=== PATIENT | female | born 1980 | race African-American/Black ===

== ENCOUNTER 2017-07-01 16:43 | Emergency (ER) | payer MEDICAID, OTHER ==
[~2017-07-01] VITALS: Ht 170.2 cm; Wt 140.0 kg
[~2017-07-01 16:43] MED LIST: CLONAZEPAM; CLONIDINE
[2017-07-01 16:51] VITALS: BP 169/90
== END 2017-07-01 20:20 | disposition left against medical advice (07) ==
LOC: ER 16:57
DX: R10.9 Unspecified abdominal pain (principal); Z53.21 Procedure and treatment not carried out due to patient leaving prior to being seen by health care provider

== ENCOUNTER 2018-08-31 14:57 | Emergency (ER) | payer MEDICAID ==
[~2018-08-31] VITALS: Ht 170.2 cm; Wt 138.0 kg
[2018-08-31 16:28] LABS: CLARITY URINE CLEAR (CLEAR); COLOR URINE YELLOW (YELLOW); KETONES URINE NEGATIVE (NEGATIVE); LEUKOCYTE ESTERASE URINE 2+ (NEGATIVE); NITRITE URINE NEGATIVE (NEGATIVE); OCCULT BLOOD URINE NEGATIVE (NEGATIVE); PH URINE 5.5 (4.5-8.0); PROTEIN URINE NEGATIVE (NEGATIVE); SPECIFIC GRAVITY URINE 1.025 (1.005-1.030)
[2018-08-31] MEDS ORDERED: IBUPROFEN 800MG TABLET PO ONE (16:30)
[2018-08-31 17:10] VITALS: BP 165/91
[2018-09-05 04:19] LABS: CHLAMYDIA TRACHOMATIS NAA Negative (Negative); NEISSERIA GONORRHOEAE NAA Negative (Negative)
== END 2018-08-31 17:19 | disposition home or self-care (01) ==
LOC: ER 14:57
DX: N39.0 Urinary tract infection, site not specified (principal); N76.0 Acute vaginitis; I10 Essential (primary) hypertension; J45.909 Unspecified asthma, uncomplicated; Z20.2 Contact with and (suspected) exposure to infections with a predominantly sexual mode of transmission; Z79.899 Other long term (current) drug therapy; Z98.51 Tubal ligation status
CPT/HCPCS: 87210; 87491; 87591; 99283

== ENCOUNTER 2018-11-14 10:32 | Emergency (ER) | payer MEDICAID ==
[~2018-11-14] VITALS: Ht 170.2 cm; Wt 141.0 kg
[2018-11-14] MEDS ORDERED: HYDROCODONE/ACETAMINOPHEN 5/325MG TABLET PO ONE (13:00)
[2018-11-14] MEDS ORDERED: ONDANSETRON 4MG ODT PO ONE (13:00)
[2018-11-14] MEDS ORDERED: KETOROLAC 60MG/2ML VIAL IM ONE (13:00)
[2018-11-14] MEDS ORDERED: DIAZEPAM 5 MG TABLET PO ONE (13:00)
[2018-11-14 13:16] LABS: CLARITY URINE CLEAR (CLEAR); COLOR URINE YELLOW (YELLOW); KETONES URINE NEGATIVE (NEGATIVE); LEUKOCYTE ESTERASE URINE NEGATIVE (NEGATIVE); NITRITE URINE NEGATIVE (NEGATIVE); OCCULT BLOOD URINE NEGATIVE (NEGATIVE); PH URINE 6.5 (4.5-8.0); PROTEIN URINE NEGATIVE (NEGATIVE); SPECIFIC GRAVITY URINE 1.023 (1.005-1.030); UROBILINOGEN URINE 0.2 E.U./dL (0.2-1.0)
[2018-11-14] MEDS ORDERED: TRAMADOL 50MG TABLET PO ONE (14:45)
[2018-11-14 15:09] VITALS: BP 145/96
== END 2018-11-14 14:49 | disposition home or self-care (01) ==
LOC: ER 10:32
DX: M54.42 Lumbago with sciatica, left side (principal); M25.552 Pain in left hip; J45.909 Unspecified asthma, uncomplicated; I10 Essential (primary) hypertension; Z98.51 Tubal ligation status; Z98.890 Other specified postprocedural states
CPT/HCPCS: 72100; 73502; 81003; 81025; 96372; 99284; J1885; Q0162

== ENCOUNTER 2018-12-18 01:59 | Emergency (ER) | payer MEDICAID ==
[~2018-12-18] VITALS: Ht 170.2 cm; Wt 133.0 kg
[2018-12-18 05:04] LABS: CLARITY URINE TURBID (CLEAR); COLOR URINE ORANGE (YELLOW); KETONES URINE TRACE (NEGATIVE); LEUKOCYTE ESTERASE URINE 1+ (NEGATIVE); NITRITE URINE NEGATIVE (NEGATIVE); OCCULT BLOOD URINE 3+ (NEGATIVE); PROTEIN URINE 2+ (NEGATIVE); SPECIFIC GRAVITY URINE 1.042 (1.005-1.030); UROBILINOGEN URINE 0.2 E.U./dL (0.2-1.0)
[2018-12-18 06:00] VITALS: BP 129/79
== END 2018-12-18 06:09 | disposition home or self-care (01) ==
LOC: ER 02:42
DX: N76.0 Acute vaginitis (principal); N39.0 Urinary tract infection, site not specified
CPT/HCPCS: 81003; 81025; 87210; 99283

== ENCOUNTER 2019-01-08 03:11 | Emergency (ER) | payer MEDICAID ==
[~2019-01-08] VITALS: Ht 170.2 cm; Wt 128.0 kg
[2019-01-08] MEDS ORDERED: DIPHENHYDRAMINE 25MG CAPSULE PO ONE (06:30)
[2019-01-08 06:33] VITALS: BP 156/96
== END 2019-01-08 06:36 | disposition home or self-care (01) ==
LOC: ER 03:11
DX: L23.9 Allergic contact dermatitis, unspecified cause (principal)
CPT/HCPCS: 99282; Q0163

== ENCOUNTER 2019-06-24 22:25 | Emergency (ER) | payer MEDICAID ==
[~2019-06-24] VITALS: Ht 172.7 cm; Wt 140.0 kg
[2019-06-25] MEDS ORDERED: CEFTRIAXONE SODIUM 250 MG/VIAL IM ONE (04:45)
[2019-06-25] MEDS ORDERED: AZITHROMYCIN 500 MG TABLET PO ONE (04:45)
[2019-06-25] MEDS ORDERED: KETOROLAC 30MG/ML VIAL IM ONE (04:45)
[2019-06-25 05:11] LABS: BASOPHILS % 0.9 % (0.0-2.0); EOSINOPHILS % 1.4 % (0.0-5.0); HEMATOCRIT. 38.6 % (36.0-48.0); HEMOGLOBIN. 13.3 g/dL (12.0-16.0); MEAN CORPUSCULAR HEMOGLOBIN 30.3 pg (28.0-32.0); MEAN PLATELET VOLUME 8.3 fl (7.4-10.4); MONOCYTES % 8.9 % (2.0-8.0); NEUTROPHILS % 68.8 % (40.0-76.0); PLATELET 259 x1000/uL (130-400); RED BLOOD CELL COUNT 4.38 mill/uL (4.2-5.4); RED CELL DISTRIBUTION WIDTH 14.5 % (11.6-14.6)
[2019-06-25 05:28] LABS: CHLORIDE 107 mEq/L (98-107)
[2019-06-25] MEDS ORDERED: ACETAMINOPHEN WITH CODEINE 300/30MG TABLET PO ONE (06:00)
[2019-06-25 06:21] LABS: CLARITY URINE CLOUDY (CLEAR); COLOR URINE YELLOW (YELLOW); KETONES URINE NEGATIVE (NEGATIVE); LEUKOCYTE ESTERASE URINE TRACE (NEGATIVE); NITRITE URINE NEGATIVE (NEGATIVE); OCCULT BLOOD URINE NEGATIVE (NEGATIVE); PH URINE 5.5 (4.5-8.0); PROTEIN URINE NEGATIVE (NEGATIVE); SPECIFIC GRAVITY URINE 1.023 (1.005-1.030); UROBILINOGEN URINE 0.2 E.U./dL (0.2-1.0)
[2019-06-25 07:04] VITALS: BP 176/109
[2019-06-27 04:07] LABS: NEISSERIA GONORRHOEAE NAA Negative (Negative)
== END 2019-06-25 07:11 | disposition home or self-care (01) ==
LOC: ER 22:25
DX: M54.5 Low back pain (principal); R35.0 Frequency of micturition; I10 Essential (primary) hypertension; F12.90 Cannabis use, unspecified, uncomplicated; G40.909 Epilepsy, unspecified, not intractable, without status epilepticus
CPT/HCPCS: 36415; 80053; 81003; 81025; 85025; 87491; 87591; 99284; J0696; J1885

== ENCOUNTER 2020-02-19 19:12 | Emergency (ER) | payer MEDICAID ==
[~2020-02-19] VITALS: Ht 170.2 cm; Wt 150.0 kg
[2020-02-19 19:19] VITALS: BP 189/114
[2020-02-19] MEDS ORDERED: CEFTRIAXONE SODIUM 250 MG/VIAL IM ONE (19:45)
[2020-02-19] MEDS ORDERED: AZITHROMYCIN 500 MG TABLET PO ONE (19:45)
[2020-02-19] MEDS ORDERED: IBUPROFEN 600MG TABLET PO ONE (19:45)
[2020-02-19 21:03] LABS: CLARITY URINE CLOUDY (CLEAR); COLOR URINE YELLOW (YELLOW); KETONES URINE NEGATIVE (NEGATIVE); LEUKOCYTE ESTERASE URINE 2+ (NEGATIVE); NITRITE URINE NEGATIVE (NEGATIVE); OCCULT BLOOD URINE NEGATIVE (NEGATIVE); PH URINE 5.5 (4.5-8.0); PROTEIN URINE TRACE (NEGATIVE); SPECIFIC GRAVITY URINE 1.031 (1.005-1.030)
[2020-02-22 04:07] LABS: NEISSERIA GONORRHOEAE NAA Negative (Negative)
== END 2020-02-19 22:13 | disposition home or self-care (01) ==
LOC: ER 19:12
DX: M79.672 Pain in left foot (principal); M79.89 Other specified soft tissue disorders; F12.10 Cannabis abuse, uncomplicated; I10 Essential (primary) hypertension; Z20.2 Contact with and (suspected) exposure to infections with a predominantly sexual mode of transmission; Z98.890 Other specified postprocedural states
CPT/HCPCS: 73630; 81003; 81025; 87491; 87591; 93971; 96372; 99285; J0696

== ENCOUNTER 2020-06-28 17:12 | Emergency (ER) | payer MEDICAID ==
[~2020-06-28] VITALS: Ht 167.6 cm; Wt 118.0 kg
[2020-06-28] MEDS ORDERED: CARB200T6 PO (17:28)
[2020-06-28] MEDS ORDERED: CEFTRIAXONE SODIUM 1 G/VIAL IM ONE (18:30)
[2020-06-28] MEDS ORDERED: HYDROCODONE/ACETAMINOPHEN 5/325MG TABLET PO ONE (18:30)
[2020-06-28] MEDS ORDERED: AZITHROMYCIN 500 MG TABLET PO ONE (18:30)
[2020-06-28] MEDS ORDERED: LIDOCAINE HCL 1% 20ML VIAL (Pyxis) INJ INFIL ONE (18:30)
[2020-06-28] MEDS ORDERED: ONDANSETRON 4MG ODT PO ONE (18:30)
[2020-06-28 18:31] LABS: CLARITY URINE CLEAR (CLEAR); COLOR URINE YELLOW (YELLOW); KETONES URINE NEGATIVE (NEGATIVE); LEUKOCYTE ESTERASE URINE 2+ (NEGATIVE); NITRITE URINE NEGATIVE (NEGATIVE); OCCULT BLOOD URINE NEGATIVE (NEGATIVE); PROTEIN URINE NEGATIVE (NEGATIVE); SPECIFIC GRAVITY URINE 1.016 (1.005-1.030); UROBILINOGEN URINE 0.2 E.U./dL (0.2-1.0)
[2020-06-28 22:00] VITALS: BP 135/86
[2020-07-01 10:08] LABS: NEISSERIA GONORRHOEAE NAA Negative (Negative)
== END 2020-06-28 22:38 | disposition home or self-care (01) ==
LOC: ER 17:12
DX: N76.0 Acute vaginitis (principal); A59.00 Urogenital trichomoniasis, unspecified; Z20.2 Contact with and (suspected) exposure to infections with a predominantly sexual mode of transmission
CPT/HCPCS: 81003; 81025; 87086; 87210; 87491; 87591; 96372; 99284; J0696; J3490; Q0162

== ENCOUNTER 2022-03-02 15:47 | Emergency (ER) | payer MEDICAID ==
[~2022-03-02] VITALS: Ht 172.7 cm; Wt 138.0 kg
[~2022-03-02 15:47] MED LIST changes: +CARB200T6 PO; +CYCL10TA21 MT; +DOXY100C5 MT; +IBUP-2028 MT; +METR500T MT
[2022-03-02] MEDS ORDERED: KETOROLAC 60MG/2ML VIAL IM NR (20:00)
[2022-03-02 21:03] VITALS: BP 171/93
[2022-03-02] MEDS ORDERED: IBUP-2029 MT ×3 (21:09→21:31)
[2022-03-02] MEDS ORDERED: LIDO700A30 TP ×3 (21:09→21:31)
== END 2022-03-02 21:34 | disposition home or self-care (01) ==
LOC: ER 15:47
DX: S93.402A Sprain of unspecified ligament of left ankle, initial encounter (principal); F12.10 Cannabis abuse, uncomplicated; I10 Essential (primary) hypertension; Z98.51 Tubal ligation status; W18.30XA Fall on same level, unspecified, initial encounter; Y93.89 Activity, other specified; Y92.89 Other specified places as the place of occurrence of the external cause; Y99.8 Other external cause status
CPT/HCPCS: 72170; 73562; 73610; 73630; 81025; 96372; 99284; J1885

== ENCOUNTER 2022-10-10 03:04 | Emergency (ER) | payer MEDICAID, MEDICARE ==
[~2022-10-10] VITALS: Ht 172.7 cm; Wt 135.0 kg
[~2022-10-10 03:04] MED LIST changes: +IBUP-2029 MT; +LIDO700A30 TP
[2022-10-10] MEDS ORDERED: IBUPROFEN 600MG TABLET PO STA (04:21)
[2022-10-10] MEDS ORDERED: ONDANSETRON 4MG ODT PO STA (04:21)
[2022-10-10] MEDS ORDERED: BACITRACIN ZINC OINT UDPKT TOP ONE (04:30)
[2022-10-10] MEDS ORDERED: KETOROLAC 60MG/2ML VIAL IM STA (04:50)
[2022-10-10] MEDS ORDERED: HYDROCODONE/ACETAMINOPHEN 5/325MG TABLET PO STA (04:50)
[2022-10-10 05:36] LABS: BASOPHILS % 0.7 % (0.0-2.0); HEMATOCRIT. 40.3 % (36.0-48.0); HEMOGLOBIN. 13.5 g/dL (12.0-16.0); LYMPHOCYTES % 25.8 % (20.0-50.0); MEAN CORPUSCULAR HEMOGLOBIN 29.6 pg (28.0-32.0); MEAN CORPUSCULAR VOLUME 88.2 fL (81.0-99.0); MEAN PLATELET VOLUME 8.7 fl (7.4-10.4); MONOCYTES % 9.9 % (2.0-8.0); NEUTROPHILS % 60.6 % (40.0-76.0); PLATELET 311 x1000/uL (130-400); RED BLOOD CELL COUNT 4.57 mill/uL (4.2-5.4); RED CELL DISTRIBUTION WIDTH 14.8 % (11.6-14.6)
[2022-10-10] MEDS ORDERED: ONDANSETRON HCL 4MG/2ML INJ IM STA (05:37)
[2022-10-10 05:43] LABS: CHLORIDE 107 mEq/L (98-107)
[2022-10-10] MEDS ORDERED: METOCLOPRAMIDE HCL 10MG/2ML VIAL IM ONE (06:15)
[2022-10-10] MEDS ORDERED: ACETAMINOPHEN WITH CODEINE 300/30MG TABLET PO STA (06:15)
[2022-10-10] MEDS ORDERED: NAPR-681 PO (06:33)
[2022-10-10] MEDS ORDERED: T3 PO (06:33)
[2022-10-10 07:14] VITALS: BP 166/108
== END 2022-10-10 08:02 | disposition home or self-care (01) ==
LOC: ER 03:04
DX: M47.896 Other spondylosis, lumbar region (principal); G89.29 Other chronic pain; R20.2 Paresthesia of skin; I10 Essential (primary) hypertension; F12.90 Cannabis use, unspecified, uncomplicated
CPT/HCPCS: 36415; 72100; 80048; 81025; 85025; 96372; 99284; J1885; J2405; J2765; Z7610; Q0162

== ENCOUNTER 2022-12-07 07:47 | Emergency (ER) | payer MEDICAID, MEDICARE ==
[~2022-12-07] VITALS: Ht 170.2 cm; Wt 136.0 kg
[~2022-12-07 07:47] MED LIST changes: +NAPR-681 PO; +T3 PO
[2022-12-07 08:34] VITALS: TEMP 98.5; O2SAT 100
[2022-12-07] MEDS ORDERED: HYDROCODONE/ACETAMINOPHEN 7.5/325MG TABLET PO ONE (11:15)
[2022-12-07 12:00] VITALS: BP 173/106; PULSE 108; RESP 18
[2022-12-07] MEDS ORDERED: MORPHINE SULFATE 10 MG/ML CPJ IM NR (12:00)
[2022-12-07] MEDS ORDERED: CEPH500C2 MT (12:37)
[2022-12-07] MEDS ORDERED: SULF1TAB48 MT (12:37)
== END 2022-12-07 12:47 | disposition home or self-care (01) ==
LOC: ER 07:47
DX: G89.29 Other chronic pain (principal); M54.50 Low back pain, unspecified; I10 Essential (primary) hypertension; Z86.59 Personal history of other mental and behavioral disorders
CPT/HCPCS: 96372; 99283; J2270; Z7610